=== PATIENT | male | born 1940 | race Caucasian/White ===

== ENCOUNTER 2022-06-04 05:45 | Inpatient (IN) | payer OTHER ==
[2022-05-30 11:53] LABS: BASOPHILS % (AUTO) 0.5 % (0.0-2.0); EOSINOPHILS # (AUTO) 0.1 K/uL (0.0-0.4); EOSINOPHILS % (AUTO) 2.4 % (0.0-4.0); HEMATOCRIT 39.1 % (36-54); LYMPHOCYTES # (AUTO) 1.6 K/uL (1.0-5.5); LYMPHOCYTES % (AUTO) 26.6 % (20.5-51.5); MEAN CORPUSCULAR VOLUME 95 fL (79.0-98.0); MONOCYTES # (AUTO) 0.4 K/uL (0.0-1.0); MONOCYTES % (AUTO) 7.2 % (1.7-9.3); NEUTROPHILS # (AUTO) 3.9 K/uL (1.8-7.7); NEUTROPHILS % (AUTO) 63.3 % (40.0-70.0); PLATELET COUNT (AUTO) 241 K/uL (130-430); RED BLOOD CELL COUNT(AUTO) 4.11 MIL/uL (4.2-6.2); RED CELL DISTRIBUTION WIDTH 13.7 % (9.0-15.0); WHITE BLOOD COUNT (AUTO) 6.1 K/uL (4.8-10.8)
[2022-05-30 12:10] LABS: ANION GAP 4 (5-15); CHLORIDE 107 mmol/L (98-107); CREATININE 1.34 mg/dL (0.55-1.30); GLUCOSE 122 mg/dL (70-99); POTASSIUM 4.6 mmol/L (3.5-5.1); UREA NITROGEN, BLOOD 25 mg/dL (8-21)
[2022-05-30 12:14] LABS: BILIRUBIN,URINE NEGATIVE (NEGATIVE); BLOOD, URINE NEGATIVE (NEGATIVE); CLARITY/URINE CLEAR (CLEAR); COLOR,URINE YELLOW (YELLOW); GLUCOSE,URINE NEGATIVE (NEGATIVE); KETONES,URINE NEGATIVE (NEGATIVE); LEUKOCYTE ESTERASE ,URINE NEGATIVE (NEGATIVE); NITRITE, URINE NEGATIVE (NEGATIVE); PROTEIN URINE NEGATIVE (NEGATIVE); UROBILINOGEN,URINE 0.2 (0.2-1.0)
[2022-05-30 12:35] LABS: PROTHROMBIN TIME 10.4 SECS (9.5-12.5)
[~2022-06-04] VITALS: Ht 175.3 cm; Wt 88.5 kg
[2022-06-04] MEDS ORDERED: CEFAZOLIN SOD 2 GM in D5W 50 ML IV ONE (07:00)
[2022-06-04] MEDS ORDERED: CEFAZOLIN 2 GM IVPB PREMIX 50 ML IV ONE (07:09)
[2022-06-04] MEDS ORDERED: NALOXONE HCL 0.4 MG/ML AMP (NARCAN) IVP PRN ×5 (08:45→11:00)
[2022-06-04] MEDS ORDERED: METOCLOPRAMIDE HCL 10 MG/2 ML VIAL IVP PRN ×2 (08:45→10:15)
[2022-06-04] MEDS ORDERED: HYDROmorphone 1 MG/ML INJ. CARTRIDGE IVP PRN ×5 (08:45→11:00)
[2022-06-04] MEDS ORDERED: MEPERIDINE HCL/PF 25 MG/ML DISP.SYRIN IVP PRN (08:45)
[2022-06-04] MEDS ORDERED: ONDANSETRON HCL 4 MG/2 ML VIAL IVP PRN ×2 (08:45→11:45)
[2022-06-04] MEDS ORDERED: hydrALAZINE HCL 20 MG/ML VIAL IVP PRN (08:45)
[2022-06-04] MEDS ORDERED: DIPHENHYDRAMINE INJ 50 MG/ML VIAL IVP PRN (08:45)
[2022-06-04] MEDS ORDERED: ACETAMINOPHEN I.V. 1000 MG 100 ML IV ONE (08:48)
[2022-06-04] MEDS ORDERED: DIPHENHYDRAMINE HCL 25 MG CAPSULE PO PRN (10:15)
[2022-06-04] MEDS ORDERED: LACTULOSE 20 GM/30 ML UDC PO PRN (10:15)
[2022-06-04] MEDS ORDERED: BISACODYL 10 MG/SUPPOSITORY RC PRN (10:15)
[2022-06-04] MEDS ORDERED: traMADol HCL HCL 50 MG TABLET (ULTRAM) PO PRN (11:00)
[2022-06-04] MEDS ORDERED: oxyCODONE HCL 5 MG TABLET PO PRN ×2 (11:00)
[2022-06-04] MEDS ORDERED: LORATADINE 10 MG TABLET PO PRN (11:00)
[2022-06-04] MEDS: ceFAZolin SODIUM 2 GM in D5W 50 ML IV SCH ×2 (11:15→18:08)
[2022-06-04 11:30] VITALS: BP_SYST 140
--- NOTE | 2022-06-04 11:30 | NUR ---
Received pt with bedside report received from Nena WHEELABRATOR OPERATOR and Elvira RN. Pt is awake, alert, and oriented x4, initiated post op frequent vs, stable, denies any pain, sensation intact to right toes and able to wiggle toes, right knee dressing in place and ice pack in place. Will continue iv fluids, iv antibiotics as ordered and implement orders. Assuming care for pt at this time.
--- NOTE | 2022-06-04 11:52 | NUR ---
Discharge Planning: DCP faxed pt referral to [facility] [phone] pending PT notes. DCP to follow up Addendum: 06/04/22 at 1509 by Geetha Lyle [facility] [phone] accepted pt, DCP to fax PT notes and discharge summary when available.
[2022-06-04] MEDS ORDERED: MULT-1089 PO (11:58)
[2022-06-04] MEDS ORDERED: LOSA25TA3 PO (11:58)
[2022-06-04] MEDS ORDERED: NAPR220T66 PO (11:58)
[2022-06-04] MEDS ORDERED: ATOR20TA64 PO (11:58)
[2022-06-04] MEDS ORDERED: OMEP40CA20 PO (11:58)
[2022-06-04] MEDS ORDERED: ASPI-859 PO (11:58)
[2022-06-04 12:00] VITALS: BP_SYST 145
[2022-06-04] MEDS: LR 1,000 ML IV SCH ×2 (12:26→18:09)
[2022-06-04] MEDS: ACETAMINOPHEN 500 MG TABLET PO SCH ×2 (14:50→22:00)
[2022-06-04] MEDS: KETOROLAC TROMETHAMINE 10 MG TABLET (TORADOL) PO SCH ×2 (15:22→22:00)
[2022-06-04 16:00] VITALS: BP_SYST 154
[2022-06-04 16:37] VITALS: BP_SYST 159
[2022-06-04 16:46] VITALS: BP_SYST 159
--- NOTE | 2022-06-04 18:00 | NUR ---
BLADDER SCANNED PT. 430CC IN THE BLADDER. PT REFUSED TO HAVE STRAIGHT CATH DONE AT THIS TIME. STATES HE WILL TRY AGAIN LATER AND IF UNABLE TO VOID MORE WILL AGREE TO STRAIGHT CATH. DENIES ANY BLADDER OR ANY DISCOMFORT.
[2022-06-04 20:00] VITALS: BP_SYST 141
[2022-06-04] MEDS: SENNOSIDES/DOCUSATE SODIUM 1 TAB TABLET(SENOKOT-S) PO SCH (22:00)
[2022-06-05] VITALS: BP_SYST 138
[2022-06-05] MEDS: LR 1,000 ML IV SCH ×2 (02:37→13:19)
[2022-06-05] MEDS: ceFAZolin SODIUM 2 GM in D5W 50 ML IV SCH (02:47)
[2022-06-05] MEDS: KETOROLAC TROMETHAMINE 10 MG TABLET (TORADOL) PO SCH (05:27)
[2022-06-05] MEDS: ACETAMINOPHEN 500 MG TABLET PO SCH ×2 (05:29→14:30)
[2022-06-05 07:27] LABS: ANION GAP 8 (5-15); CALCIUM 8.5 mg/dL (8.4-11.0); CHLORIDE 99 mmol/L (98-107); CREATININE 1.55 mg/dL (0.55-1.30); GLUCOSE 106 mg/dL (70-99); POTASSIUM 3.8 mmol/L (3.5-5.1); UREA NITROGEN, BLOOD 20 mg/dL (8-21)
[2022-06-05 07:48] LABS: BASOPHILS % (AUTO) 0.1 % (0.0-2.0); EOSINOPHILS % (AUTO) 0.2 % (0.0-4.0); HEMATOCRIT 33.4 % (36-54); LYMPHOCYTES # (AUTO) 1.1 K/uL (1.0-5.5); LYMPHOCYTES % (AUTO) 9.2 % (20.5-51.5); MEAN CORPUSCULAR VOLUME 95 fL (79.0-98.0); MONOCYTES # (AUTO) 0.9 K/uL (0.0-1.0); MONOCYTES % (AUTO) 7.6 % (1.7-9.3); NEUTROPHILS % (AUTO) 82.9 % (40.0-70.0); PLATELET COUNT (AUTO) 220 K/uL (130-430); RED BLOOD CELL COUNT(AUTO) 3.51 MIL/uL (4.2-6.2); RED CELL DISTRIBUTION WIDTH 13.4 % (9.0-15.0)
[2022-06-05] MEDS ORDERED: Bisacodyl Suppository RC (07:51)
[2022-06-05 08:42] VITALS: BP_SYST 158
[2022-06-05] MEDS: SENNOSIDES/DOCUSATE SODIUM 1 TAB TABLET(SENOKOT-S) PO SCH (08:46)
[2022-06-05] MEDS ORDERED: MULTIVITAMINS TAB 1 TABLET PO SCH (09:00)
[2022-06-05] MEDS ORDERED: ASPIRIN 81 MG TAB.CHEW PO SCH (09:00)
[2022-06-05] MEDS ORDERED: DECADRON 4 MG TABLET PO SCH (09:00)
[2022-06-05] MEDS ORDERED: LOSARTAN POTASSIUM 25 MG TABLET PO SCH (09:00)
[2022-06-05] MEDS ORDERED: ATORVASTATIN 20 MG TABLET PO SCH (09:00)
--- NOTE | 2022-06-05 09:50 | NUR ---
EVALUATION COMPLETED: INDEPENDENT BED MOBILITY; SUPERVISED GAIT AND TRANSFERS WITH THE [facility]. NURSING MAY ASSIST WITH TRANSFERS AND GAIT. PATIENT IS TO USE THE [facility].
--- NOTE | 2022-06-05 10:41 | NUR ---
Discharge Planning: DCP faxed pt updated clinicals and PT notes to [facility] [phone].
[2022-06-05] MEDS ORDERED: CELECOXIB 200 MG CAPSULE PO SCH (11:00)
[2022-06-05 11:21] VITALS: BP_SYST 140
[2022-06-05 13:37] VITALS: BP_SYST 140
--- NOTE | 2022-06-05 14:03 | NUR ---
Dr. Garay, called [facility] and relayed lab results to MD (CMP, CBC) and per MD okay to go home. Also per MD, he sent some medications to pt.'s preferred pharmacy ready for garbage pick up worker.
[2022-06-05] MEDS ORDERED: ASA81 PO (14:58)
[2022-06-05] MEDS ORDERED: BUPIVACAINE /DEX PF 0.75% SPINAL 2 ML AMP INJ ONE (15:06)
[2022-06-05] MEDS ORDERED: LR 1,000 ML IV.SOLN IV ONE (15:06)
[2022-06-05] MEDS ORDERED: GLYCOPYRROLATE 0.2 MG/ML VIAL IJ ONE (15:06)
[2022-06-05] MEDS ORDERED: NS 1000 ML IV.SOLN IV ONE (15:06)
[2022-06-05] MEDS ORDERED: WATER FOR IRRIGATION,STERILE 1,000 ML IRRIG.SOLN IR ONE (15:06)
[2022-06-05] MEDS ORDERED: TRANEXAMIC ACID 1,000 MG/10 ML VIAL IV ONE (15:06)
[2022-06-05] MEDS ORDERED: KETOROLAC TROMETHAMINE 30 MG VIAL IVP ONE (15:06)
[2022-06-05] MEDS ORDERED: PROPOFOL 200MG/ 20ML VIAL (DIPRIVAN) IV ONE (15:06)
[2022-06-05] MEDS ORDERED: MORPHINE SULFATE 10MG/10ML PF AMP EP ONE (15:06)
[2022-06-05] MEDS ORDERED: MIDAZOLAM HCL 5 MG/5 ML VIAL IVP ONE (15:06)
[2022-06-05] MEDS ORDERED: CEFAZOLIN 2 GM IVPB PREMIX 50 ML IV ONE (15:06)
[2022-06-05] MEDS ORDERED: LIDOCAINE 2%, 20 ML MDV INJ ONE (15:06)
[2022-06-05] MEDS ORDERED: ONDANSETRON HCL 4 MG/2 ML VIAL IVP ONE (15:06)
[2022-06-05 15:53] VITALS: BP_SYST 160
--- NOTE | 2022-06-05 16:16 | NUR ---
Gave dc instructions to pt and verbalized understanding. picked-up the pt and pt left the unit in stable condition. Addendum: 06/05/22 at 1619 by Marc Atwood RN RN IV access on the L hand removed, no signs of bleeding noted.
== END 2022-06-05 16:16 | disposition home health service (06) | DRG 470 ==
LOC: SMU 05:45
PROVIDERS: ADMIT Student in an Organized Health Care Education/Training Program; ATTEND Student in an Organized Health Care Education/Training Program
PROC: 0SRC0JZ Replacement of Right Knee Joint with Synthetic Substitute, Open Approach (ICD-10-PCS; principal; 2022-06-04 07:41)
DX: M17.11 Unilateral primary osteoarthritis, right knee (principal); E78.5 Hyperlipidemia, unspecified; K21.9 Gastro-esophageal reflux disease without esophagitis; Z20.822 Contact with and (suspected) exposure to COVID-19
CPT/HCPCS: 36415; 71046-TC; 73564; 80048; 81003; 85025; 85610-TC; 85730-TC; 87081; 88305; 88311; 93005; 96379; 97163-GP; J0131; J0690; J1885; J2001; J2250; J2274; J2405; J2704; J3490; J7030; J7060; J7120; J8540; U0003